=== PATIENT | male | born 1945 | race Caucasian/White ===

== ENCOUNTER 2020-03-03 10:50 | Inpatient (IN) | payer OTHER ==
[~2020-03-03] VITALS: Ht 172.7 cm; Wt 102.1 kg
--- NOTE | ~2020-03-03 | OP ---
[address] [address] OPERATIVE REPORT Name: ELMER WRIGHT Room: [address] IN M.R.#: [id number] Admission: 03/04/20 Attend Phys: Brenton Gamez MD Discharge: Date of : 47 Report #: [id number] THIS REPORT FOR: cc: Ketty Rivera Stefany RNP ~ Jorge Johnson DO DICTATED BY: Jordan Siddiqi DO DATE OF SERVICE: 03/07/2020 PREOPERATIVE DIAGNOSIS: Acute cholecystitis with cholelithiasis. POSTOPERATIVE DIAGNOSIS: Acute cholecystitis with cholelithiasis. SURGEON: Jorge Johnson DO ELECTRICAL PROSPECTING OPERATOR: Jordan Siddiqi, PGY5 OPERATION PERFORMED: Laparoscopic cholecystectomy, intraoperative cholangiogram with surgeon interpretation of images. ANESTHESIA: General and transversus abdominis plane block. ESTIMATED BLOOD LOSS: 50. SPECIMEN: Gallbladder. COMPLICATIONS: None. FLUOROSCOPY TIME: 37 seconds and contrast load was 10 mL. INDICATIONS: The patient is a 74-year-old male who presented to the Emergency Department with complaints of right upper quadrant pain. He was found on preoperative imaging to have gallstones and biliary sludge. He was also found to have an elevated bilirubin. For this reason, he was informed of the risks and benefits of laparoscopic cholecystectomy with intraoperative cholangiogram with risks including but not limited to bleeding, infection, bile duct injury, bowel injury, hernia formation, need for open procedure, need for reoperation, chronic diarrhea. He understood these risks and decided to proceed with surgery. DESCRIPTION OF PROCEDURE: After informed consent was obtained, the patient was brought to the operating room and placed in supine position. SCDs were on and running. Preoperative antibiotics had been given on the floor. General anesthesia was administered with an ET tube. The patient was prepped and draped in the usual sterile fashion. A surgical pause [place] [address] OPERATIVE REPORT Name: ELMER WRIGHT Michelle Room: [address] IN [facility]#: [id number] Admission: 03/04/20 Attend Phys: Brenton Gamez MD Discharge: Date of : 47 Report #: [id number] patient and procedure. A vertical supraumbilical incision 3 cm in length was made with an 11-blade. Dissection was carried through the subcutaneous fat using cautery. Fascia was identified and scored using cautery and elevated with 2 Ankita clamps. Peritoneum was entered using a Khalida. Stay sutures using 0 Vicryl were used at the superior and inferior aspect of the incision. The 5 mm Sabrina trocar was inserted into the abdomen and the abdomen was insufflated. Camera was then introduced into the abdomen. Attention was turned towards the right upper quadrant. The patient was positioned head up, right side up. The omentum was adhesed to the gallbladder. A 5 mm port was placed in the epigastrium under direct visualization and two additional 5 mm ports were placed in the right upper quadrant under direct visualization. The omental adhesions were bluntly swept down and the gallbladder was visualized, it was focally gangrenous and one port placed aside and acutely edematous with a thick wall. Because of the intra-abdominal fat and difficult visualization, an additional 10 mm port was placed in the right lower quadrant under direct visualization to accommodate a fan retractor, which was used to place downward retraction on the intra-abdominal fat to identify the hepatocystic triangle. Once the visualization was improved, cautery was used to incise the peritoneum overlying the hepatocystic triangle. This was developed laterally and medially. Blunt dissection with a suction rug scratcher when [place] dissection was used to identify the cystic duct and cystic artery and cystic artery was doubly clipped and left in situ. Blunt dissection was used to encircle the cystic duct. Once the cystic duct was confirmed and a critical view of safety had been obtained, a cholangiogram was performed by ____ purple fire across the distal cystic duct. Reina were used to create a cystic ductotomy. The taut catheter was introduced through a 14-gauge Angiocath through the abdominal wall. The catheter was advanced into the cystic duct. The catheter was secured using 2 clips. A cholangiogram was then performed. There was filling of the cystic duct and the common bile duct with spillage of the contrast into the duodenum. There were no obvious filling defects. The right hepatic and common hepatic was visualized; however, the left hepatic was not easily visualized; however, there was some leakage of contrast from the catheter insertion site as the ____ of the common bile duct and the common hepatic duct and cystic duct were obtained. The cholangiogram was finished. The clips were removed. The taut catheter was withdrawn. Three clips were placed across the proximal cystic duct. Scissors were used to divide the remaining cystic duct that had been divided. Dissection over the cystic artery was performed to accommodate further two additional clips. The cystic artery was divided using scissors. Gallbladder was then elevated and dissected free from the liver bed. There was a posterior arterial branch that was clipped and an additional arterial branch that was clipped. The gallbladder was acutely edematous and inflamed and the rind had some bleeding. There was venous and stopped once the gallbladder was completely removed. The gallbladder was excised from the liver bed using cautery. Once completely detached, cautery was used for hemostasis. It was placed within an EndoCatch bag and placed aside. The liver bed was inspected. The right upper quadrant was thoroughly irrigated and suctioned. The gallbladder fossa was hemostatic. [place] [id number] OPERATIVE REPORT Name: ADRIANAELMER Michelle Room: [address] IN .R.#: [id number] Admission: 03/04/20 Attend Phys: Brenton Gamez MD Discharge: Date of : 47 Report #: [id number] The clips were hemostatic. There was no bile leak. The 10 mm port in the right lower quadrant was closed using a PMI and 0 Vicryl. The abdomen was desufflated. Remainder of ports was removed under direct visualization. Previous stay sutures were elevated. Specimen was removed through the umbilical incision. Two additional flzfxi-jz-bjrdo using 0 Vicryl were used to close the fascia. This wound was closed in layered fashion using 3-0 Vicryl, 4-0 Monocryl. Remainder of skin was closed using 4-0 Monocryl. Wounds were cleansed with Dermabond. The patient received bilateral transversus abdominis plane blocks by Anesthesia. The patient was then emerged from anesthesia and transferred to PACU in stable condition. All counts were correct. There were no complications. By: 1216 1237Apreet Johnson DO /nt
[~2020-03-03 10:50] MED LIST: ASPIR 8181 MG PO; ATENOLOL 25 MG25 M1 PO; KEFLEX500 MG PO; NORVASC5 MG PO; POTASSIUM20 PO; PRILOSEC 10MG C10 MG PO
[2020-03-03 10:53] VITALS: BP 179/97
[2020-03-03] MEDS ORDERED: ATENOLOL 25 MG25 M1 PO (11:00)
[2020-03-03] MEDS ORDERED: NORVASC 2.5 MG2.5 M1 PO (11:00)
[2020-03-03] MEDS ORDERED: LEVO-T25 MCG PO (11:01)
[2020-03-03] MEDS ORDERED: MELOXICAM15 MG PO (11:01)
[2020-03-03] MEDS ORDERED: METFORMIN HCL500 M3 PO (11:02)
[2020-03-03] MEDS ORDERED: OMEPRAZOLE 20 M20 M1 PO (11:02)
[2020-03-03 11:09] LABS: ABSOLUTE BASOPHILS 0.1 thou/uL (0.0-0.2); ABSOLUTE EOSINOPHILS 0.3 thou/uL (0.0-0.7); ABSOLUTE LYMPHOCYTES 1.7 thou/uL (0.8-5.3); ABSOLUTE MONOCYTES 0.8 thou/uL (0.0-1.2); ABSOLUTE NEUTROPHILS 5.2 thou/uL (1.6-8.1); BASOPHILS 0.9 %; EOSINOPHILS 4.1 %; HEMOGLOBIN 16.1 gm/dL (14.0-18.0); LYMPHOCYTES 21.1 %; MCH 25.7 pg (26.0-34.0); MCHC 32.9 g/dL (28.0-37.0); MONOCYTES 9.5 %; MPV 8.5 fl. (7.2-11.1); NUCLEATED RBCS 0 /100WBC; PLATELET COUNT* 234 thou/uL (150-400); POLYS 64.4 %; RBC 6.28 mil/uL (4.50-6.00); RDW-CV 15.8 % (10.5-14.5)
[2020-03-03 11:19] LABS: PROTIME 10.8 Seconds (9.20-11.50)
[2020-03-03 11:24] LABS: CALCIUM 8.5 mg/dL (8.5-10.1); CREATININE 1.1 mg/dL (0.6-1.3); POTASSIUM 3.5 mmol/L (3.5-5.1)
[2020-03-03 11:42] LABS: ALBUMIN 4.5 g/dL (3.4-5.0); MAGNESIUM 2.2 mg/dL (1.8-2.4); TOTAL BILIRUBIN 1.6 mg/dL (<0.1-1.0); TOTAL PROTEIN 8.8 g/dL (6.4-8.2)
[2020-03-03 15:24] VITALS: BP 172/98
[2020-03-03 16:25] VITALS: BP 176/91
--- NOTE | 2020-03-03 17:54 | 2DMMODE ---
[place] [address] 2 D/M-MODE ECHOCARDIOGRAM Name: ANTOINEELMER Polo Michelle Room: [address] Mer[place]#: [id number] Admission: 03/03/20 Attend Phys: Brenton Gamez, Discharge: Date of : 47 Date of Service: 03/03/20 1754 Report #: [id number] THIS REPORT FOR: cc: Ketty Rivera Stefany RNP Liston, Michael J. MD [facility] ~ APPROVED REPORT Study performed: 03/03/2020 15:33:45 EXAM: Comprehensive 2D, Doppler, and color-flow Echocardiogram Patient Location: In-Patient Room #: [facility] Status: routine BSA: 2.15 HR: 60 bpm BP: 168/92 mmHg Rhythm: NSR Other Information Study Quality: Good Indications Chest Pain 2D Dimensions IVSd: 10.14 (7-11mm) LVOT Diam: 20.87 (18-24mm) LVDd: 50.54 mm PWd: 12.32 (7-11mm) Ascending Ao: 34.44 (22-36mm) LVDs: 26.44 (25-40mm) Aortic Root: 33.15 mm Volumes Left Atrial Volume (Systole) LA ESV Index: 29.90 mL/m2 Aortic Valve AoV Peak Stuart.: 1.32 m/s AO Peak Gr.: 6.97 mmHg LVOT Max P.08 mmHg AO Mean Gr.: 3.60 mmHg LVOT Mean P.14 mmHg LVOT Max V: 1.13 m/s AO V2 VTI: 29.49 cm LVOT Mean V: 0.65 m/s CARMEN (VTI): 3.01 cm2 LVOT V1 VTI: 25.99 [place] [address] 2 D/M-MODE ECHOCARDIOGRAM Name: ELMER WRIGHT Room: [address] M.R.#: [id number] Admission: 03/03/20 Attend Phys: Brenton Gamez, Discharge: Date of : 47 Date of Service: 03/03/20 1754 Report #: [id number] Mitral Valve E/A Ratio: 1.47 MV Decel. Time: 190.62 ms MV E Max Stuart.: 0.90 m/s MV PHT: 55.28 ms MVA (PHT): 3.98 cm2 TDI E/Lateral E': 8.18 E/Medial E': 11.25 Medial E' Stuart.: 0.08 m/s Lateral E' Stuart.: 0.11 m/s Pulmonary Valve PV Peak Stuart.: 0.94 m/s PV Peak Gr.: 3.50 mmHg Tricuspid Valve RAP Estimate: 5.00 mmHg TR Peak Gr.: 31.79 mmHg RVSP: 36.00 mmHg PA Pressure: 36.00 mmHg Left Ventricle The left ventricle is normal size. There is normal LV segmental wall motion. There is normal left ventricular wall thickness. Left ventricular systolic function is normal. The left ventricular systolic function is normal. LVEF is 55-60%. Transmitral Doppler flow pattern suggests impaired LV relaxation. Right Ventricle The right ventricle is normal size. The right ventricular systolic function is normal. Atria The left atrium size is normal. The right atrium size is normal. Aortic Valve The aortic valve is normal in structure. No aortic regurgitation is present. There is no aortic valvular stenosis. Mitral Valve The mitral valve is normal in structure. There is no mitral valve regurgitation noted. No evidence of mitral valve stenosis. Tricuspid Valve The tricuspid valve is normal in structure. Trace tricuspid regurgitation. [place] [address] 2 D/M-MODE ECHOCARDIOGRAM Name: ELMER WRIGHT Room: [address] MWilderRWilder#: [id number] Admission: 03/03/20 Attend Phys: Brenton Gamez, Discharge: Date of : 47 Date of Service: 03/03/20 1754 Report #: [id number] Pulmonic Valve The pulmonary valve is normal in structure. Trace pulmonic regurgitation. Great Vessels The aortic root is normal in size. IVC is normal in size and collapses >50% with inspiration. Pericardium There is no pericardial effusion. <Conclusion> The left ventricle is normal size. There is normal left ventricular wall thickness. LVEF is 55-60%. Transmitral Doppler flow pattern suggests impaired LV relaxation. Trace tricuspid regurgitation. Mild pulmonary hypertension. IVC is normal in size and collapses >50% with inspiration. <ELECTRONICALLY SIGNED> By: Kendall Chandler MD, FACC 03/03/201753 53 53 Kendall Chandler MD, FACC /INF
--- NOTE | 2020-03-03 18:10 | EKG ---
[place] [address] ELECTROCARDIOGRAM REPORT Name: ELMER WRIGHT Room: [address] M.R.#: [id number] Admission: 03/03/20 Attend Phys: Brenton Gamez, Discharge: Date of : 47 Date of Service: 03/03/20 1054 Report #: [id number] THIS REPORT FOR: //name// [facility] ED Test Date: 2020-03-03 Test Time: 10:54:18 Pat Name: ELMER WRIGHT Department: Room: [facility] Gender: M Senior Clinical Project Manager: TP : 1945 Requested By: Tarik Corral Order Number: [id number] MD: Kendall Chandler Measurements Intervals [place] Rate: 62 P: 45 VA: 215 QRS: 7 QRSD: 103 T: 35 QT: 456 QTc: 463 Interpretive Statements Sinus rhythm with first-degree AV block Probable left atrial enlargement RSR' in V1 or V2, right VCD or RVH Baseline wander in lead(s) V1,V3 No previous ECG available for comparison Electronically Signed On 03-03-2020 18:10:23 SECURITY [employer] by Kendall Chandler [email or web address] <ELECTRONICALLY SIGNED> By: Kendall Chandler MD, FACC 03/03/20 1810 1054 1054 Kendall Chandler MD, FACC /EPI
--- NOTE | 2020-03-03 19:00 | NUR ---
PT ADMITTED FROM ER ABOUT 1600. ADMISSIONS INTERVENTIONS AND MED REC COMPLETE. CHEST PAIN 4/10, ASYMTOMATIC AND TOLERATING. CALL LIGHT AND PERSONAL BELONGINGS PLACED WITHIN REACH. PT. IN BED, WATCHING TV, IN NO APPARENT DISTRESS, AT SHIFT CHANGE.
[2020-03-03 20:00] VITALS: BP 164/85
--- NOTE | 2020-03-03 20:00 | NUR ---
RECEIVED REPORT AND ASSUMED CARE OF PT, ASSESSMENT COMPLETED. CONT TO C/O MID STERNAL CHEST PAIN, NON RADIATING. CONSTANT 4-5/10 ON PAIN SCALE. PT DENIES SOA OR NAUSEA. TELEMETRY ON SHOWING SR WITH 1ST AVB AND PVC. WILL CONT TO MONITOR AND ASSIST NEEDED.
[2020-03-04] VITALS: BP 149/77
[2020-03-04 02:06] LABS: GLYCOHEMOGLOBIN (HGB A1C) 6.7 % (4.8-5.6)
[2020-03-04 04:00] VITALS: BP 150/59
[2020-03-04 04:17] LABS: ABSOLUTE LYMPHOCYTES 1.7 thou/uL (0.8-5.3); ABSOLUTE MONOCYTES 0.9 thou/uL (0.0-1.2); BASOPHILS 0.4 %; EOSINOPHILS 0.3 %; HEMOGLOBIN 14.2 gm/dL (14.0-18.0); LYMPHOCYTES 13.3 %; MCH 24.9 pg (26.0-34.0); MCHC 32.3 g/dL (28.0-37.0); MCV 77.2 fL (80.0-100.0); MONOCYTES 7.3 %; MPV 8.9 fl. (7.2-11.1); NUCLEATED RBCS 0 /100WBC; PLATELET COUNT* 240 thou/uL (150-400); POLYS 78.7 %; WBC 12.7 thou/uL (4.0-11.0)
[2020-03-04 04:41] LABS: CALCIUM 8.3 mg/dL (8.5-10.1); CREATININE 1.1 mg/dL (0.6-1.3); POTASSIUM 3.2 mmol/L (3.5-5.1)
--- NOTE | 2020-03-04 05:36 | NUR ---
SLEPT WELL TONIGHT. NO CHANGE IN ASSESSMENT. CONT TO HAVE CHEST PAIN WITHOUT COMPLETELY GOING AWAY. INDEPENDENT BRP WITH STEADY GAIT. TELEMETRY CONT TO SHOW SR WITH 1ST AVB AND PVC. HS GOALS OF REST AND SAFETY ACHIEVED. HOURLY ROUNDING OBSERVED.
[2020-03-04 08:00] VITALS: BP 150/79
[2020-03-04 10:15] LABS: CALCIUM 8.5 mg/dL (8.5-10.1); POTASSIUM 3.2 mmol/L (3.5-5.1)
[2020-03-04 10:25] LABS: ALBUMIN 3.7 g/dL (3.4-5.0); TOTAL BILIRUBIN 1.3 mg/dL (<0.1-1.0); TOTAL PROTEIN 7.1 g/dL (6.4-8.2)
[2020-03-04 11:48] VITALS: BP 147/86
--- NOTE | 2020-03-04 16:26 | NUR ---
ASSUMED CARE OF PATIENT THIS AM AT 0730. PATIENT IS ALERT AND ORIENTED X 4. HE C/O CONTINUED ABD PAIN. DR PHILLIPS IN TO ROUND AND DISCHARGE PLANNED AFTER PATIENT SEES SURGERY. PATIENT IS HAD A LOW GRADE TEMP THIS AM. HIS TEMP THIS EVENING HAS GONE UP TO 101.6. PAGEAlia FOR ORDERS. TELE SHOWS SR WITH 1 DEGREE AVB. POTASSIUM WAS LOW. REPLACEMENT GIVEN PER ORDER. PATIENT IS RESTING HIS IS AT THE BEDSIDE.
[2020-03-04 16:33] VITALS: BP 167/85
[2020-03-04 20:05] VITALS: BP 133/71
[2020-03-05] VITALS: BP 168/87
--- NOTE | 2020-03-05 02:48 | NUR ---
ASSUMED CARE OF PT AT 1900. PT IS ALERT AND ORIENTED. VSS. PERRLA. NO COMPLAINTS OF PAIN. STEADY GAIT. PT IS IN SINUS RYTHM ON THE TELEMETRY. PT IS RESTING COMFORTABLY IN BED. RESPIRATIONS ARE EVEN AND NONLABORED. WILL CONTINUE TO MONITOR PT.
[2020-03-05 04:00] VITALS: BP 142/64
[2020-03-05 04:13] LABS: ABSOLUTE LYMPHOCYTES 1.6 thou/uL (0.8-5.3); ABSOLUTE MONOCYTES 1.2 thou/uL (0.0-1.2); ABSOLUTE NEUTROPHILS 12.4 thou/uL (1.6-8.1); BASOPHILS 0.2 %; HEMATOCRIT 44.2 % (42.0-52.0); HEMOGLOBIN 14.5 gm/dL (14.0-18.0); LYMPHOCYTES 10.5 %; MCH 25.3 pg (26.0-34.0); MCHC 32.9 g/dL (28.0-37.0); MCV 76.8 fL (80.0-100.0); MONOCYTES 8.1 %; MPV 8.6 fl. (7.2-11.1); NUCLEATED RBCS 0 /100WBC; PLATELET COUNT* 220 thou/uL (150-400); POLYS 81.2 %; RBC 5.75 mil/uL (4.50-6.00); RDW-CV 16.2 % (10.5-14.5); WBC 15.3 thou/uL (4.0-11.0)
[2020-03-05 04:34] LABS: ALBUMIN 3.5 g/dL (3.4-5.0); CALCIUM 8.3 mg/dL (8.5-10.1); CREATININE 1.2 mg/dL (0.6-1.3); POTASSIUM 3.4 mmol/L (3.5-5.1); TOTAL BILIRUBIN 1.4 mg/dL (<0.1-1.0); TOTAL PROTEIN 7.2 g/dL (6.4-8.2)
[2020-03-05 08:00] VITALS: BP 149/73
[2020-03-05 12:00] VITALS: BP 142/65
--- NOTE | 2020-03-05 13:14 | NUR ---
ASSUMED CARE OF PATIENT THIS AM AT 0730. PATIENT IS ALERT AND ORIENTED X 4. HE STATES THE IS PAIN CONTINUES BUT DOES NOT WANT PAIN MEDICATION AT THIS TIME. SURGERY WAS IN TO ROUND. DR REDDY IN TO ROUND. IV FLUIDS CONTINUED. PATIENT KEPT NPO PER DR CASILLAS VERBAL. TELE SHOWS SR WITH 1DAVB.
[2020-03-05 16:00] VITALS: BP 163/78
[2020-03-05 20:24] VITALS: BP 145/85
[2020-03-06 00:39] VITALS: BP 113/56
[2020-03-06 04:00] VITALS: BP 141/86
[2020-03-06 05:18] LABS: ABSOLUTE BASOPHILS 0.1 thou/uL (0.0-0.2); ABSOLUTE LYMPHOCYTES 1.8 thou/uL (0.8-5.3); ABSOLUTE MONOCYTES 1.1 thou/uL (0.0-1.2); ABSOLUTE NEUTROPHILS 8.4 thou/uL (1.6-8.1); BASOPHILS 0.7 %; EOSINOPHILS 0.3 %; HEMOGLOBIN 13.3 gm/dL (14.0-18.0); LYMPHOCYTES 15.7 %; MCH 25.3 pg (26.0-34.0); MCHC 32.5 g/dL (28.0-37.0); MONOCYTES 9.7 %; MPV 9.3 fl. (7.2-11.1); NUCLEATED RBCS 0 /100WBC; PLATELET COUNT* 206 thou/uL (150-400); POLYS 73.6 %; RBC 5.26 mil/uL (4.50-6.00); RDW-CV 15.9 % (10.5-14.5); WBC 11.5 thou/uL (4.0-11.0)
[2020-03-06 05:54] LABS: INR 1.1; PROTIME 12.1 Seconds (9.20-11.50)
[2020-03-06 06:03] LABS: CALCIUM 8.1 mg/dL (8.5-10.1); CREATININE 1.1 mg/dL (0.6-1.3); POTASSIUM 3.2 mmol/L (3.5-5.1); TOTAL PROTEIN 6.3 g/dL (6.4-8.2)
[2020-03-06 06:37] LABS: % SATURATION 11 % (20-39); IRON 33 ug/dL (50-175)
[2020-03-06 08:00] VITALS: BP 151/78
--- NOTE | 2020-03-06 09:21 | NUR ---
PT IS ABLE TO COMMUNICATE HIS NEEDS TO STAFF EFFECTIVELY. CURRENT PAIN MEDICATION REGIMEN HAS BEEN ADEQUATE FOR CONTROLLING HIS PAIN UP TO THIS 0700 TODAY. HE HAS BEEN NPO, EXCEPT FOR ICE CHIPS, FOR GI REST AND POSSIBLE GALL BLADDER SX SOON. PT DID CHANGE HEART RHYTHM FOR SR TO AFIB AND THEN BACK TO SR, OVERNIGHT; MADE AWARE.
--- NOTE | 2020-03-06 11:42 | EKG ---
[place] [address] ELECTROCARDIOGRAM REPORT Name: ELMER WRIGHT Room: [address] ADM IN M.R.#: [id number] Admission: 03/04/20 Attend Phys: Brenton Gamez, Discharge: Date of : 47 Date of Service: 03/06/20 0215 Report #: [id number] THIS REPORT FOR: //name// [facility] Test Date: 2020-03-06 Test Time: 02:15:00 Pat Name: ELMER WRIGHT Department: Room: [address] Gender: M Illuminator: THOWARD3 : 1945 Requested By: Delvis Farfan Order Number: [id number] Lee MD: Jaxson Zamorano Measurements Intervals [place] Rate: 95 P: AL: QRS: -4 QRSD: 105 T: -3 QT: 385 QTc: 484 Interpretive Statements Atrial fibrillation Ventricular premature complex Borderline repolarization abnormality Borderline prolonged QT interval Compared to ECG 03/03/2020 10:54:18 Ventricular premature complex(es) now present Sinus rhythm no longer present Electronically Signed On 03-06-2020 11:42:50 BANANA LOADER by Jaxson Zamorano [email or web address] <ELECTRONICALLY SIGNED> By: Jaxson Zamorano MD, FACC 03/06/20 1142 Jaxson Zamorano MD, FACC /EPI
[2020-03-06 12:00] VITALS: BP 129/73
[2020-03-06 16:00] VITALS: BP 140/71
--- NOTE | 2020-03-06 17:34 | NUR ---
CM COMPLETED THE INITIAL ASSESSMENT TO DISCUSS D/C PLANNING. PT IS A&O. PT LIVES AT HOME W/SPOUSE. PT IS ACTIVE, DRIVES A VEHICLE AND INDEPENDENT W/CARES. PT DENIES HX W/ HH OR SNF. PT HAS 0 DMES. NO ANTICIPATED CM NEEDS.
--- NOTE | 2020-03-06 18:54 | NUR ---
PT IS RESTING AT THIS TIME. VSS ON RA. SR ON MONITOR. NPO AFTER MIDNIGHT.LAPCHOLE SCHEDULED FOR 0730. NOTHING FURTHER AT THIS TIME.CLWR.WCTM
[2020-03-06 20:49] VITALS: BP 129/61
[2020-03-07 00:09] VITALS: BP 139/69
[2020-03-07 04:51] VITALS: BP 131/57
[2020-03-07 05:18] LABS: HEMATOCRIT 39.7 % (42.0-52.0); MCH 25.5 pg (26.0-34.0); MCHC 32.7 g/dL (28.0-37.0); MCV 78.2 fL (80.0-100.0); MPV 8.9 fl. (7.2-11.1); RBC 5.08 mil/uL (4.50-6.00); RDW-CV 16.3 % (10.5-14.5); WBC 12.1 thou/uL (4.0-11.0)
[2020-03-07 05:24] VITALS: BP 139/69
[2020-03-07 05:38] LABS: ALBUMIN 2.8 g/dL (3.4-5.0); CALCIUM 7.9 mg/dL (8.5-10.1); MAGNESIUM 2.1 mg/dL (1.8-2.4); PHOSPHORUS* 2.7 mg/dL (2.5-4.9); POTASSIUM 3.3 mmol/L (3.5-5.1); TOTAL BILIRUBIN 0.8 mg/dL (<0.1-1.0); TOTAL PROTEIN 6.3 g/dL (6.4-8.2)
--- NOTE | 2020-03-07 09:01 | NUR ---
PT IS ABLE TO COMMUNICATE HIS NEEDS TO STAFF EFFECTIVELY. CURRENT PAIN MEDICATION REGIMEN HAS BEEN ADEQUATE FOR CONTROLLING HIS PAIN UP TO THIS TIME. HE HAS BEEN NPO SINCE MIDNIGHT FOR A LAP JON THIS MORNING AT AROUND 0730. GIVEN PERMISSION TO BE WITH PT FOR SURGERY.
[2020-03-07 11:03] LABS: CALCIUM 7.9 mg/dL (8.5-10.1); CREATININE 1.3 mg/dL (0.6-1.3); POTASSIUM 4.2 mmol/L (3.5-5.1)
[2020-03-07 11:06] LABS: PHOSPHORUS* 4.7 mg/dL (2.5-4.9)
[2020-03-07 12:00] VITALS: BP 154/80
--- NOTE | 2020-03-07 13:06 | NUR ---
Pt having lap maurice today. Plan dc to home tomorrow, no needs anticipated.
[2020-03-07 16:00] VITALS: BP 143/68
[2020-03-07 20:20] VITALS: BP 150/75
[2020-03-08] VITALS: BP 121/63
[2020-03-08 04:00] VITALS: BP 130/70
--- NOTE | 2020-03-08 07:05 | NUR ---
CHANGE OF SHIFT BEDSIDE REPORT GIVEN PATIENT SEEN AT BEDSIDE, IN BED ASLEEP ASSUMED PATIENT CARE
--- NOTE | 2020-03-08 07:20 | NUR ---
CHANGE OF SHIFT REPORT GIVEN PATIENT SEEN AT BEDSIDE, IN BED WATCHING TV ASSUMED PATIENT CARE
[2020-03-08 08:00] VITALS: BP 143/81
--- NOTE | 2020-03-08 08:23 | NUR ---
PATIENT HAS RESTED WELL THROUGHOUT MOST OF THE NIGHT. VSS ON 2L 02 VIA NASAL CANNULA. PATIENT WAS AGITATED AND STATED THAT HE CALLED NURSING STATION AND SPOKE WITH SOMEONE REGARDING HIS 02 TUBING COMING LOOSE FROM THE WALL. ALL NURSING STAFF WERE AT THE NURSING STATION AND THERE WAS NO CALL TO NURSING STATION AT THE TIME THAT HE STATED PER EACH MEMBER OF NURSING STAFF. 02 WAS PLUGGED BACK INTO THE WALL. PATIENT UP AD-KI. PATIENT HAS BEEN URINATING ADEQUATELY. TOLERATING DIET OF CLEAR LIQUIDS DURING THE NIGHT. IV IN LEFT HAND-NS @ 80ML/HR. IV IN RIGHT HAND-SL. LAP SITES X 4 ARE WELL APPROXIMATED AND CLOSED WITH DERMABOND. PAIN WELL CONTROLLED. PATIENT INSTRUCTED TO USE CALL LIGHT WHEN NEEDING ASSISTANCE. HOURLY ROUNDS MADE. WILL CONTINUE WITH PLAN OF CARE AND NURSING TO MONITOR.
--- NOTE | 2020-03-08 12:50 | NUR ---
Pt should dc to home today, no needs.
[2020-03-08 12:56] VITALS: BP 143/81
--- NOTE | 2020-03-09 17:07 | PATH ---
[address] [address] PATHOLOGY RPT PROCEDURE Name: MARTY HILARIO Room: [address] IN M.R.#: [id number] Admission: 03/04/20 Date of : 47 Discharge: 03/08/20 Report #: [id number] Path Case #: [id number] [facility] Accession Number: [id number] . 01 Material submitted: . gallbladder - GALLBLADDER AND CONTENTS . 01 Clinician provided ICD-10: A41.9 K85.90 . 01 Clinical history: . CHOLECYSTITIS CHOLECYST CHEST PAIN . 02 Diagnosis: Gallbladder and contents: - Chronic and acute gangrenous cholecystitis and cholelithiasis. (SUPRIYA:lainey; 03/09/2020) QMS 03/09/2020 1245 Local . 02 Electronically signed: . Israel Polanco MD, Pathologist NPI- [id number] . 01 Gross description: . The specimen is received in formalin labeled "Marty Hilario, gallbladder and contents" and consists of a ragged, disrupted, green henriquez to brown and hemorrhagic gallbladder measuring 10.6 x 4.4 x 2.8 cm. The margin is inked black. Opening reveals a lumen filled with multiple black gravel-like calculi measuring approximately 4.0 x 4.0 cm in aggregate. The mucosa is green to red-pink and irregular with an average wall thickness of 0.2 cm. No masses are identified. Machine Operator sections are submitted in A1-A2. (SDY; 03/08/2020) SYU/SYU 03/08/2020 1634 Local . 02 Pathologist provided ICD-10: K80.12 . 02 CPT . 504925 Specimen Comment: A courtesy copy of this report has been sent to [phone] Specimen Comment: [phone], Specimen Comment: Report sent to ,DR PHILLIPS / DR CAMPO Performed at: [address] [place] [address] PATHOLOGY RPT PROCEDURE Name: MARTY HILARIO Room: [address] M.R.#: [id number] Admission: 03/04/20 Date of : 47 Discharge: 03/08/20 Report #: [id number] Path Case #: [id number] [address] [facility] [address], [place] [id number] MD Osbaldo Britton MD Phone: [phone] Performed at: [address] [facility] Oliverio Zuleta, RONA Jack [id number] MD Israel Polanco MD Phone: [phone]
== END 2020-03-08 14:00 | disposition home or self-care (01) | DRG 853 ==
LOC: M.ERS 10:50 → M.TBA-ER 12:06 → M.2W 15:37
PROVIDERS: Emergency Medicine Emergency Medical Services; Internal Medicine; Internal Medicine Gastroenterology; Surgery; ADMIT Internal Medicine; ATTEND Internal Medicine
PROC: BF101ZZ Fluoroscopy of Bile Ducts using Low Osmolar Contrast (ICD-10-PCS; principal; 2020-03-07)
PROC: 0FT44ZZ Resection of Gallbladder, Percutaneous Endoscopic Approach (ICD-10-PCS; principal; 2020-03-07)
PROC: 3E0T3BZ Introduction of Anesthetic Agent into Peripheral Nerves and Plexi, Percutaneous Approach (ICD-10-PCS; 2020-03-07)
DX: A41.9 Sepsis, unspecified organism (principal); K85.90 Acute pancreatitis without necrosis or infection, unspecified; K80.00 Calculus of gallbladder with acute cholecystitis without obstruction; E87.1 Hypo-osmolality and hyponatremia; E87.6 Hypokalemia; I10 Essential (primary) hypertension; K21.9 Gastro-esophageal reflux disease without esophagitis; E03.9 Hypothyroidism, unspecified; D75.1 Secondary polycythemia; E11.9 Type 2 diabetes mellitus without complications; E80.6 Other disorders of bilirubin metabolism; E78.5 Hyperlipidemia, unspecified; K76.0 Fatty (change of) liver, not elsewhere classified; G47.30 Sleep apnea, unspecified; E66.9 Obesity, unspecified; R07.9 Chest pain, unspecified; Z20.828 Contact with and (suspected) exposure to other viral communicable diseases; Z88.0 Allergy status to penicillin; Z79.82 Long term (current) use of aspirin; Z79.899 Other long term (current) drug therapy; Z68.34 Body mass index [BMI] 34.0-34.9, adult; Z87.891 Personal history of nicotine dependence